=== PATIENT | male | born 1965 | race Caucasian/White ===

== ENCOUNTER 2016-11-05 18:13 | Emergency (ER) | payer BC ==
[~2016-11-05] VITALS: Ht 167.6 cm; Wt 80.0 kg
[2016-11-05 18:28] VITALS: TEMP 37.2; Ht 167.6 cm; Wt 80.0 kg
[2016-11-05] MEDS ORDERED: XYLOCAINE 1%/SOD BICARB 20 ML VIAL INFIL ONE (19:15)
[2016-11-05] MEDS ORDERED: DIPHTHERIA/TETANUS/PERTUSSIS 0.5 ML SYR/VIAL IM. ONE (20:15)
[2016-11-05 20:36] VITALS: BP 120/86; PULSE 79; O2SAT 95
--- NOTE | 2016-11-06 01:31 | EMERGENCY ROOM VISIT NOTE ---
ED Visit Note First contact with patient: 18:34 Chief Complaint: Right forearm laceration. History of Present Illness: Mr. Resendiz is a 51-year-old white male who ambulates into the ED complaining of a forearm laceration to the medial aspect of the proximal forearm. Patient reports less than 1 hour ago he was restoring an axe and ran into the axe's blade with his right forearm and sustained a laceration. He reports prior to arrival at the hospital he did control bleeding but did not wash the wound. He denies any associated symptoms with his laceration including pain at the laceration site, difficulty flexing and extending the elbow and pronating and supinating the right forearm, hand weakness/numbness/tingling. Review of Systems: As noted above in history of present illness. Past Medical History: Patient denies. Current Medications: Patient denies. Allergies to Medications: Patient denies. Social History: Patient is currently employed; he feels safe in his home environment; he denies tobacco use. Tetanus Immunization Status: Patient reports greater than 10 years. Physical Examination: Vital Signs: Date Time Temp Pulse Resp B/P Pulse Ox O2 Delivery O2 Flow Rate FiO2 11/05/16 20:36 79 16 120/86 95 Room Air 11/05/16 18:28 37.2 89 18 165/90 95 Room Air GENERAL: 51-year-old male in no acute distress, nontoxic-appearing, afebrile and hemodynamically stable. NEUROLOGICAL: Awake, alert and oriented to person, place and time. Answering questions appropriately and following commands. Good hand eye coordination. No focal motor or sensory deficits. SKIN: Warm, dry and pink. Right Forearm: Over the proximal medial forearm patient has a lazy to the shape laceration measuring 5.4 cm. No active bleeding. RIGHT UPPER EXTREMITY: Soft tissue injury as noted above. No gross bony deformity. Full range of motion in flexion and extension of the elbow and pronation and supination of forearm against resistance. Distal pulses and sensations are intact and equal bilaterally. ED Course: Patient is assessed as noted above. Wound Repair: Complexity: Basic Verbal consent was obtained after the risks and benefits were explained. The skin was prepped with betadine and a sterile field set. Wound edges of the wound was anesthetized with 6.3 ml buffered 1% lidocaine. The wound was explored for foreign bodies and none found. Copious irrigation was performed using sterile saline. With direct pressure the bleeding subsided. Debridement was not performed. The wound edges were approximated using 5-0 Ethilon with 17 simple interrupted sutures. Hemostasis and excellent approximation was achieved. Antibacterial ointment and a sterile dressing applied. No complications and the patient tolerated the procedure well. Patient was educated about tonight's findings and instructed on his treatment plan; he verbalizes understanding and agreement with this plan. Clinical Impression: Laceration of the right forearm. Disposition: Patient discharged home in stable condition; prior to departure he was reassessed and subjectively reported he was still pain free. Plan: Comfort measures, wound care, and signs of infection were discussed with the patient. Patient was encouraged to follow-up with PCP or return to the ED for signs of infection and/or suture 10-12 days.
== END 2016-11-05 20:35 | disposition home or self-care (01) ==
LOC: C.EDB 18:14 → C.EDD 20:35
DX: S51.811A Laceration without foreign body of right forearm, initial encounter (principal); W27.0XXA Contact with workbench tool, initial encounter